=== PATIENT | male | born 2000 | race Caucasian/White ===

== ENCOUNTER 2022-03-05 16:13 | Emergency (ER) | payer BC, SELFPAY ==
[2022-03-05 16:14] VITALS: BP 110/74; PULSE 64; RESP 16; TEMP 37.1; O2SAT 98; BMI 16.2
[2022-03-05 16:34] VITALS: BP 130/71; PULSE 85; RESP 17; TEMP 36.9; O2SAT 99
--- NOTE | 2022-03-05 16:59 | EKG12_ITS ---
Test Reason : GEN ILLNESS Blood Pressure : / mmHG Vent. Rate : 095 BPM Atrial Rate : 095 BPM P-R Int : 170 ms QRS Dur : 082 ms QT Int : 336 ms P-R-T Axes : 070 085 061 degrees QTc Int : 422 ms Normal sinus rhythm Normal ECG Confirmed by CARMEN SOLIS, CASSIDY ([id number]), newspaper editor managing CORONA TEMPLE ([id number]) on 03/06/2022 10:33:22 AM Referred By: TL Confirmed By:CASSIDY MORALES MD
--- NOTE | 2022-03-05 17:21 | EDS_ITS ---
HPI History of Present Illness Chief Complaint: General Illness Informant: patient Narrative Narrative: [facility]. X2 days ago with exposures. He checked over the weekend has been negative today went back to [facility] er at 2 PM was positive. He states however 7 AM he is in his room he states he does not know how he got on the ground he came around proximally 90 minutes later. He scrapes on his legs. He is not recall how they got there. Also reports there is been bad exposures in the dormitory with multiple students being treated. Concerns for bat bites. He has not had the rabies vaccine in the past. Reports headache sore throat cough. COVID vaccinated with the booster. No infections in the past. No past medical history. Currently nauseated. Is given meclizine at the [facility] states still nauseated. [facility] Medical History No acute medical problems Home Medications NK 03/05/22 [History Last Taken Unknown] Allergy/AdvReac Type Severity Reaction Status Date / Time Penicillins [PCN] Allergy Hives Verified 03/05/22 16:42 Social History Smoking Status: Never smoker ROS ROS ED Constitutional Constitutional ED: Denies chills, fever(s) or sweats Eyes Eyes: Denies change in vision ENT ENT ED: Denies dysphagia or sore throat Cardiovascular Cardiovascular: Denies chest pain, leg edema, palpitations or racing heartbeat Respiratory/Chest Respiratory/Chest: Reports cough; Denies dyspnea or dyspnea on exertion Gastrointestinal Gastrointestinal: Reports nausea; Denies abdominal pain, diarrhea or vomiting Genitourinary Genitourinary ED: Denies dysuria, hematuria or urinary frequency Musculoskeletal Musculoskeletal: Denies back pain, extremity pain or neck pain Integumentary Reports Abrasions; Denies rash or wounds Neurologic Neurologic: Reports headache(s); Denies paresthesias or weakness EXAM Physical Exam Const Vital Signs: 03/05/22 16:14 03/05/22 16:34 03/05/22 16:41 Temperature 98.7 F 98.5 F Temperature Source Temporal Oral Pulse Rate 64 85 Respiratory Rate 16 17 Respiratory Effort Normal Non-Labored Respiratory Pattern Normal Blood Pressure 110/74 130/71 H Blood Pressure Mean 86 90 Pulse Ox 98 99 Oxygen Delivery Method Room Air Room Air 03/05/22 19:21 03/05/22 20:27 Temperature Temperature Source Pulse Rate 88 89 Respiratory Rate 15 16 Respiratory Effort Respiratory Pattern Blood Pressure 126/68 H Blood Pressure Mean 87 Pulse Ox 98 98 Oxygen Delivery Method Room Air Positive well nourished and well developed General Appearance ED: well developed and NAD HEENT Reports moist mucous membranes HEENT Narrative: No tongue abrasions or lacerations. normocephalic and atraumatic Eyes PERRL, EOMs intact bilaterally and conjunctivae normal General Eye ED: Yes normal appearance of both eyes Neck no lymphadenopathy and supple Neck Narrative: No meningismus General: Negative for tenderness Chest Wall Chest: Negative for tenderness Resp normal respiratory effort and normal air movement Effort and Inspection: symmetric chest movement; Negative for respiratory distress Cardio regular rate, regular rhythm and no murmurs Peripheral Pulses: pulses 2+ throughout GI normal to inspection, nondistended, normoactive bowel sounds and non-tender Palpation: Negative for guarding or rebound tenderness present Back/Spine no CVA tenderness and no thoracic nor lumbar tenderness Extremity normal to inspection General Extremety ED: Negative for edema or tenderness General Extremity: Negative for edema Neuro oriented x3, CN's II-XII intact bilaterally and no sensory deficits noted Sensorium / Orientation: awake and alert Skin Skin Narrative: Right leg there was 4 large scratch type abrasions medial thigh upper leg. No punctures. Left leg was abrasion to medial aspect of the knee with abrasion on the distal anterior cano. There is no active bleeding. No punctures noted. MDM MDM MDM Narrative Medical decision making narrative: Patient presenting with reported syncope however he states he does not recall moving down for 90 minutes. He had no tongue abrasions however differential included seizures. I recommended CT head, however patient spoke with mother on the phone he states he would like that worked up as an outpatient. Syncope work-up normal EKG labs are all stable except for potassium 3.2. This was orally replaced. Addition reports that exposure is his dorm, has abrasion on his legs likely from his event today. Discussed not injuries from potential bat bites. However there is a breakout of bats in the dormitory at the [facility] with multiple students being evaluated in the past 2 weeks. Discussed with concerns exposure recommendations will be immunoglobulin with vaccine series he would like this. This was initiated. He is able ambulate in the ED. Feeling better with IV fluids. Pulse ox stable at 98% with his COVID diagnosis symptoms. Return precautions. All questions were answered. Lab Data Attestation: I reviewed the patient's lab results. Labs: Laboratory Results - last 24 hr 03/05/22 03/05/22 17:27 17:27 WBC 6.3 RBC 4.39 L Hgb 13.5 Hct 38.3 L MCV 87.2 MCH 30.8 MCHC 35.2 RDW Std Deviation 37.9 RDW Coeff of Lj 11.9 Plt Count 239 MPV 10.3 Immature Gran % (Auto) 0.200 Neut % (Auto) 68.6 Lymph % (Auto) 14.8 L [place] % (Auto) 15.9 H Eos % (Auto) 0.0 Baso % (Auto) 0.5 Absolute Neuts (auto) 4.3 Absolute Lymphs (auto) 0.93 Nucleated RBC % 0 Sodium 139 Potassium 3.2 L Chloride 104 Carbon Dioxide 27.0 Anion Gap 8 BUN 8 Creatinine 0.76 Estim Creat Clear Calc 109.42 Est GFR (MDRD) Af Amer 168 Est GFR (MDRD) Non-Af 139 BUN/Creatinine Ratio 10.5 Glucose 129 H Calcium 9.0 EKG Initial EKG: Attestation: I personally reviewed and interpreted this EKG as follows: Comments: Sinus rate of 95, no ST changes. QTc 422. Discharge Plan Triage Chief Complaint: General Illness ED Provider: Ja Winn Dx/Rx/DC Orders Clinical Impression: COVID-19 virus infection, Syncope, Abrasion, Exposure to bat without known bite, Acute hypokalemia Instructions: Coronavirus Disease 2019 (COVID-19): Caring for Yourself or Others, Dizziness Fainting Causes, Understanding Rabies Prescriptions: No Action NK Primary Care Provider: Care Physician,No Primary Referrals: Care Physician,No Primary [Primary Care Provider] - Activity Restrictions/Additional Instructions: Return for your rabies series. EKG is normal labs are stable potassium was replaced. He did not want a CT scan of the head. With your event there is possible seizure that could have occurred. Follow-up with your doctor for further work-up as an outpatient as you did not want it initiated here with imaging. Return if any worsening symptoms. Disposition Disposition: Home, Self Care Discharge Date/Time: 03/05/22 21:21
[2022-03-05] MEDS: 0.9% Normal Saline 1,000 ML 1000 ML IV (17:31)
[2022-03-05] MEDS: Ondansetron 4 MG/2 ML Vial IV (17:34)
[2022-03-05 17:38] LABS: Absolute Lymphocyte Count 0.93 X10^3/uL (0.83-4.51); Absolute Neutrophil Count 4.3 X10^3/uL (2.0-7.7); Basophil# 0.03 X10^3/uL; Basophil% 0.5 % (0-1); Hematocrit 38.3 % (40-54); Hemoglobin 13.5 g/dL (13.0-16.5); Lymphocyte # 0.93 X10^3/ul (0.83-4.51); Lymphocyte % 14.8 % (19-41); Mean Corp Hgb Conc 35.2 g/dL (32-36); Mean Corpuscular Hgb 30.8 pg (27.0-32.0); Mean Corpuscular Volume 87.2 fL (80-94); Mean Platelet Vol. 10.3 fl (6.2-12.0); Monocyte% 15.9 % (0-10); NRBC Flagged by Analyzer 0 % (0-5); Neutrophil # 4.33 X10^3/uL (2.7-7.7); Neutrophil % 68.6 % (47-70); Platelet Count 239 K/mm3 (150-450); RBC Distribution Width CV 11.9 % (11.6-14.6); RBC Distribution Width SD 37.9 fl (35.1-43.9); Red Blood Count 4.39 M/mm3 (4.6-6.2); White Blood Count 6.3 K/mm3 (4.4-11.0)
[2022-03-05] MEDS: Acetaminophen 500 MG Tablet 1000 MG PO (17:39)
[2022-03-05 17:53] LABS: Anion Gap 8 (5-15); BUN 8 mg/dL (7-18); BUN/Creat Ratio 10.5 RATIO (10-20); Chloride 104 mmol/L (98-107); Creatinine, Serum 0.76 mg/dL (0.70-1.30); EST Glomerular Filtration Rate 139 mL/min (>60); Est Glom Filt Rate - Afr Amer 168 mL/min (>60); Estimated Creatinine Clearance 109.42 ml/min; Glucose 129 mg/dL (74-106); Potassium 3.2 mmol/L (3.5-5.1); Sodium Level 139 mmol/L (136-145)
[2022-03-05] MEDS: Rabies Immune Globulin/PF 300 UNIT/ML, 5 ML VIAL 1000 UNIT IM (18:38)
[2022-03-05] MEDS: Rabies Vaccine,Human Diploid 2.5 UNITS Vial IM (18:40)
[2022-03-05 19:21] VITALS: BP 126/68; PULSE 88; RESP 15; O2SAT 98
[2022-03-05] MEDS: Potassium Chloride Oral Tablet 20 MEQ 40 MEQ PO (19:22)
[2022-03-05 20:27] VITALS: PULSE 89; RESP 16; O2SAT 98
== END 2022-03-05 21:21 | disposition home or self-care (01) ==
PROVIDERS: Emergency Provider Emergency Medicine; Visit Provider Emergency Medicine
DX: U07.1 COVID-19 (principal); R55 Syncope and collapse; Z23 Encounter for immunization; R11.0 Nausea; S80.212A Abrasion, left knee, initial encounter; X58.XXXA Exposure to other specified factors, initial encounter; S80.812A Abrasion, left lower leg, initial encounter; S70.311A Abrasion, right thigh, initial encounter; E87.6 Hypokalemia
CPT/HCPCS: 80048; 85025; 90375; 90675; 93005; 96361; 96372; 96374; 99285; J7030; A4216; J2405

== ENCOUNTER 2022-03-08 15:03 | Outpatient (CLI) | payer BC, SELFPAY ==
[2022-03-08 15:04] VITALS: BP 115/67; PULSE 96; RESP 15; TEMP 36.7; O2SAT 99; BMI 16.2
[2022-03-08] MEDS: Rabies Vaccine,Human Diploid 2.5 UNITS Vial IM (15:36)
[2022-03-08 15:38] VITALS: BP 99/69; PULSE 86; RESP 17; O2SAT 95; BMI 16.2
== END 2022-03-08 16:37 | disposition home or self-care (01) ==
DX: Z23 Encounter for immunization (principal)
CPT/HCPCS: 90675; 96372

== ENCOUNTER 2022-03-12 17:02 | Outpatient (CLI) | payer BC, SELFPAY ==
[2022-03-12 17:03] VITALS: BP 104/72; PULSE 101; PULSE 102; RESP 20; TEMP 36.6; O2SAT 98; BMI 16.2; BMI 35.8
[2022-03-12] MEDS: Rabies Vaccine,Human Diploid 2.5 UNITS Vial IM (17:26)
[2022-03-12 17:30] VITALS: BMI 35.8
== END 2022-03-12 17:49 | disposition home or self-care (01) ==
PROVIDERS: PCP Pediatrics; Visit Provider Emergency Medicine
DX: Z23 Encounter for immunization (principal)
CPT/HCPCS: 90675; 96372

== ENCOUNTER 2022-03-19 14:11 | Outpatient (CLI) | payer BC, SELFPAY ==
[2022-03-19 14:12] VITALS: BP 131/80; PULSE 101; PULSE 102; RESP 16; TEMP 35.4; O2SAT 97; BMI 16.2
[2022-03-19] MEDS: Rabies Vaccine,Human Diploid 2.5 UNITS Vial IM (14:52)
== END 2022-03-19 15:12 | disposition home or self-care (01) ==
PROVIDERS: PCP Pediatrics
DX: Z23 Encounter for immunization (principal)
CPT/HCPCS: 90675; 96372